=== PATIENT | female | born 1985 | race Caucasian/White ===

== ENCOUNTER 2024-07-11 15:19 | Outpatient (CLI) | payer OTHER, SELFPAY ==
--- NOTE | ~2024-07-11 | US_ITS ---
EXAM: PELVIC ULTRASOUND HISTORY: Abnormal Uterine Bleeding COMPARISON: None. FINDINGS: UTERUS: 8.9 x 4.9 x 6.4 cm. The uterus is anteverted and anteflexed. The endometrial complex measures 8.4 mm. RIGHT OVARY: The right ovary is unremarkable in echogenicity and size measuring 3.7 x 2.0 x 3.5 cm. Dopplerable flow is identified. LEFT OVARY: The left ovary is unremarkable in echogenicity and size measuring 3.7 x 1.9 x 3.0 cm Dopplerable flow is identified. No free fluid is identified within the pelvis. IMPRESSION: Unremarkable sonographic evaluation of the female pelvis, as detailed above. Reviewed, dictated and finalized at location A.
== END 2024-07-11 15:20 | disposition home or self-care (01) ==
PROVIDERS: PCP Obstetrics & Gynecology Gynecology; Visit Provider Obstetrics & Gynecology Gynecology
DX: N93.8 Other specified abnormal uterine and vaginal bleeding (principal)
CPT/HCPCS: 76856

== ENCOUNTER 2024-07-21 08:40 | Outpatient (CLI) | payer OTHER, SELFPAY ==
--- NOTE | ~2024-07-21 | MMUS_ITS ---
EXAMINATION: MM diagnostic min BI w julisa, US breast BI complete HISTORY: Bilateral nipple discharge. Lateral breast pain. TECHNIQUE: Additional 3-D tomosynthesis images of the breasts were performed and synthetic 2-D images were generated. CAD analysis was submitted and interpreted. High resolution bilateral complete breas t ultrasound was performed. COMPARISON: No prior studies for comparison. BREAST PARENCHYMAL COMPOSITION: Dense: The breasts are extremely dense, which lowers the sensitivity of mammography. FINDINGS: MAMMOGRAPHIC FINDINGS: There are no suspicious masses, calcifications or architectural distortion in either breast to sugges t malignancy. ULTRASOUND: Complete US of all 4 quadrants of the breast/s and retroareolar region was reviewed. Right breast: At 3:00, 3 cm from the nipple there is a parallel oriented hypoechoic mass with circums cribed margins, heterogeneous internal echotexture measuring 1.6 x 0.5 x 1.2 cm. No internal vascular ity or posterior features. At 8:00, 4 cm from the nipple there is an 8 mm minimally complicated cyst. Left breast: At 1:00, 3 cm from the nipple there is a 5 mm cyst. At 3:00, 6 cm from the nipple there is an oval circumscribed parallel oriented hypoechoic 7 mm mass without internal vascularity or poste rior features. At 10:00, 4 cm from the nipple there is a 5 mm cyst. IMPRESSION: 1. Probable benign bilateral breast masses in the right breast at 3:00, 3 cm from the nipple and in t he left breast at 3:00, 6 cm from the nipple. 2. Recommend 6 month follow-up limited bilateral breast ultrasound recommended. BI-RADS category 3, probably benign findings. Reviewed, dictated and finalized at location A. IMPRESSION: 1. Probable benign bilateral breast masses in the right breast at 3:00, 3 cm fr om the nipple and in the left breast at 3:00, 6 cm from the nipple. 2. Recommend 6 month follow-up limited bilateral breast ultrasound recommended. BI-RADS category 3, probably benign findings.
== END 2024-07-21 08:41 | disposition home or self-care (01) ==
LOC: MICIMG 08:42
PROVIDERS: PCP Obstetrics & Gynecology Gynecology; Visit Provider Obstetrics & Gynecology Gynecology
DX: N64.52 Nipple discharge (principal)
CPT/HCPCS: 76641; 77062; 77066; G0279

== ENCOUNTER 2024-07-24 01:33 | Day surgery (SDC) | payer OTHER, SELFPAY ==
[2024-07-19 08:28] VITALS: BMI 24.2
--- NOTE | 2024-07-19 08:37 | PC.NURSE ---
Report to the Outpatient Waiting Room, entrance under the green pavilion located off [facility], at time __0915am on date __07/24/24 . Planned Procedure Time: __1115am .? Time changes happen often and if your time is changed the preop area will call you the afternoon before. - You and your visitor will be asked to self-screen and do not enter if you have any COVID symptoms. Please call surgeon if you need to reschedule. - A mask is optional within the hospital at this time. Patients may have clear liquids (water, carbonated beverages, clear teas, apple juice) until 3 hours prior to surgery with a maximum of 20 ounces. - No food from midnight until time of surgery and no smoking, or chewing tobacco (or any form of nicotine). No chewing gum, candy or mints. (08:15am) Take only the following medications with a SIP of water on the morning of surgery: None DO NOT STOP ANY OF YOUR OTHER PRESCRIPTION MEDICATIONS PRIOR TO SURGERY EXCEPT THE FOLLOWING Hold all vitamins and supplements for 3 days per anesthesiologist. Medications to discontinue per physician None Date to take last dose None Please no make-up, nail malay, hairspray, perfume, deodorant, or body powder the day of surgery.? No jewelry (including any body piercings) or valuables the day of surgery, leave them at home.? Please take a shower or bath the night before, or the morning of, surgery with an antibacterial soap.? Wear comfortable, loose fitting clothing.? - Jewelry must be removed prior to entering the operating room.? Rings and piercings that are not removed may be cut off. - The hospital will not accept responsibility for valuables.? - Please leave all valuables, including medications, at home the day of surgery. If you are going home after surgery, a licensed armored car driver must drive you home.? - NO public transportation without another adult if you receive anesthesia. - We recommend that an adult stay with you for 24 hours following discharge. - We also recommend that you do not drive, make important decision, drink alcoholic beverages, or take any drugs that were not prescribed by your health care provider for at least 24 hours after your discharge time. Follow any additional instructions given to you from your surgeon. Telephone instructions given to ___Patient and asked if any additional questions and then verbalized understanding. Patient advised to call surgeon office or pre surgery nurse liaison [phone] if any additional questions.
--- OUTSIDE RECORDS SUMMARY | 2024-07-24 01:36 | XMS_ITS | Data Portability ---
Author Organization [facility] Address [address] [place] [address] Assessment Encounter Date Assessment Date Assessment LastModified by Organization Details LastModified Time 01/06/2016 01/06/2016 discussed irregular periods, will try some OCPs Pelvic US normal for menstruating femal... [email or web address] Not available 01/06/2016 16:33:33 Plan of Treatment Reminders Order Date Submit Date Provider Last Modified By Organization Details Last Modified Time Details Appointments None recorded . Lab pap, IG + reflex HR HPV 2015 016 [email or web address] [id number] [facility], [address] [place] [address], [address], [place], [address], 6 04:31:42 Referral None recorded . Procedures None recorded . Surgeries None recorded . Imaging CT, chest, w/o contrast 2015 016 [email or web address] [id number] Not available 6 04:31:17 US, pelvis, transabd ominal + transvag inal 2015 016 [email or web address] [id number] Not available 6 04:30:28 Medication Orders tramadol 50 mg tablet 2016 017 [facility], [address], [place], [address], 7 17:16:04 ketorola c 60 mg/2 mL intramus cular solution 2016 017 [email or web address] Not available 7 16:16:31 tramadol 50 mg tablet 2015 016 DBA_PATCH_[email or web address] [id number] [facility], [address] , [place], [address], 6 04:30:48 ibuprofe n 800 mg tablet 2015 016 DBA_PATCH_20 [id number] [facility], [address] [facility], [place], [address], 6 04:30:20 Patient TargetsNo targets recorded. Patient Instructions Encounter Date Encounter Id Patient Instructions Last Modified By Organization Details Last Modified Time 12/16/2015 [id number] Make apt. for pelvic US TIP. RTC in 2 weeks. Apt. made. mpass Not available 12/16/2015 17:25:[address] scan in ER. Told to see track laborer for enlarged uterus and bleeding x 2 months. Pt. has a hx of a LEEP with little follow-up. Will return here in 2 weeks for annual and follow-up on pelvi US. mpass Not available 12/16/2015 17:24:30 12/18/2015 [id number] abdominal pain: care instructions [email or web address] Not available 12/18/2015 16:15:30 12/30/2015 [id number] To make apt. with Dr. Saxena for pelvic and vaginal pain. mpass Not available 12/30/2015 09:47:01 Pt. had a pelvic US that was essentially negative. She experienced pain on today's exam that caused her to cry. Speculum insertion, removal and pap caused her pain. Will see Dr. Saxena for this problem. mpass Not available 12/30/2015 09:49:00 07/01/2016 [id number] biceps tendinitis: exercises [email or web address] Not available 07/01/2016 16:16:42 Reason for Referral None Reported. Results Created Date Observation Date Name Description Value Unit Range Abnormal Flag Note LastModifiedBy Organization Detail LastModifiedTime 12/30/19 16 12/31/2015 pap, IG + refle x HR HPV diagnosis: COMMEN T NEGAT CHAPIS FOR INTRA EPITH ELIAL VIJAY Wayne AND NAHEED MG . CELLU VILMA JOHNSTON ES ASSOC IATED WITH INFLA MMATI ON ARE PRESE NT. Not Available [facility] ([facility]) [address] [place], [address], 12/31/2015 16:21:23 12/30/19 16 12/31/2015 pap, IG + refle x HR HPV specimen adequacy: COMMELVER T SATIS FACTO RY FOR EVALU ATION . ENDOC ERVIC AL AND/O R SQUAM OUS METAP LASTI C CELLS (ENDO CERVI HARLYE COMPO NENT) ARE PRESE NT. AREAS OF PARTI ALLY OBSCU RING INFLA MMTOR Y EXUDA TE ARE PRESE NT. Not Available [facility] ([facility]) [address] [place], [address], 12/31/2015 16:21:23 12/30/19 16 12/31/2015 pap, IG + refle x HR HPV clinician provided ICD10: MATI Zaldivar Z01.4 19 Not Available [facility] ([facility]) [address] [place], [address], 12/31/2015 16:21:23 12/30/19 16 12/31/2015 pap, IG + refle x HR HPV performed by: MATI ROSENBAUM CYTOKayley OMER T (ASCP ) Not Available [facility] ([facility]) [address] [place], [address], 12/31/2015 16:21:23 12/30/19 16 12/31/2015 pap, IG + refle x HR HPV . . Not Available [facility] ([facility]) [address] [place], [address], 12/31/2015 16:21:23 12/30/19 16 12/31/2015 pap, IG + refle x HR HPV note: MATI T THE PAP SMEAR IS A SCREE HEATHER TEST ELIANE JORGE TO AID IN THE DETEC TION OF DEEP LIGNA NT AND MALALOK NANKayley CONDI TIONS OF THE UTERI NE CERVI X. IT IS NOT A DIAGN OSTIC PROCE DURE AND SHOUL D NOT BE USED THE SOLE MEANS OF DETEC TING CERVI HARLEY CANCE R. BOTH FALSE -POSI TIVE AND FALSE -NEGA TIVE REPOR TS DO OCCUR . Not Available [facility] ([facility]) [address] [facility], [place], [address], 12/31/2015 16:21:23 12/30/19 16 12/31/2015 pap, IG + refle x HR HPV test methodology: COMMEN T THIS LIQUI D BASED THINP REP(R ) PAP TEST WAS SCREE ANIA WITH THE USE OF AN IMAGE GUIDE D SYSTMatilda M. Not Available [facility] ([facility]) [address] [facility], [place], [address], 12/31/2015 16:21:23 12/30/19 16 12/31/2015 pap, IG + refle x HR HPV . COMMEN T THE HPV DNA REFLE X [place] WERE NOT MET WITH THIS SPECI MEN RESUL T THERE FORE, NO HPV TESTI NG WAS PERFO RMED. Not Available [facility] ([facility]) [address] [facility], [place], [address], 12/31/2015 16:21:23 12/25/19 16 12/25/2015 US, pelvi s, trans abdom inal + trans vagin al No observ ation record ed. [email or web address] [address] [place], [address], 12/30/2015 10:04:54 Result Notes None recorded. Problems Name Problem SNOMED Code Status Onset Date Resolution Date Notes Provider Name and Address Organization Details Recorded Time Abdominal pain 55849610 Active 2015 Anna Ferreira null, [place] - [facility] 6 17:02:16 Dysmenorrhea 752404117 Active 2012 CHERRIE Peck, [place] - [facility] 6 14:48:17 Bipolar disorder 77669154 Active Korin wayne MA null, [place] - [facility] 6 14:49:31 Problem Notes None recorded. Procedures Surgical History Date Name Laterality Status Provider Name and Address Organization Details Recorded Time Date of Last Pap Smear completed Jesus Rodriguez RN [facility] 12/30/2015 09:14:37 2 Caesarean Section completed Korin Bay MA [facility] 12/30/2015 15:07:03 9 Caesarean Section completed Korin Bay MA [facility] 12/30/2015 15:06:07 Tubal Ligation completed Anna Ferreira [facility] 12/16/2015 17:02:59 LEEP completed Anna Ferreira [facility] 2015 17:03:06 Imaging Results None recorded. Procedure Notes None recorded. Medical Equipment None Reported. Allergies No known drug allergies Medications Name Sig Start Date Stop Date Status Note LastModified by Organization Details LastModified Time ibuprofen 800 mg tablet Take 1 tablet 3 times a day by oral route around the clock. 12/29 completed Not Available Not Available Not Available tramadol 50 mg tablet Take 1 tablet every 8 hours by oral route for 30 days. 2016 active Not Available Not Available Not Avai lable ketorolac 60 mg/2 mL intramuscul ar solution Inject 2 mL by intramusc ular route. 2016 active Not Available Not Available Not Avai lable Vitals Date Recorded Body height Body weight Body mass index (BMI) Oxygen saturation Oxygen saturation in Arterial blood by Pulse oximetry Heart rate Systolic blood pressure Diastolic blood pressure Provider Name and Address Organization Details Last Updated DateTime 7 160.02 cm 78737.7 2 g 21.7 kg/m2 98 % 98 % 112 /min 134 mm[Hg] 84 mm[Hg] Kate Yee MA [facility] 7 15:47:24 Date Recorded Body height Body weight Body mass index (BMI) Systolic blood pressure Diastolic blood pressure Provider Name and Address Organization Details Last Updated DateTime 12/16/2015 160.02 cm 58340.64 g 22.3 kg/m2 118 mm[Hg] 64 mm[Hg] Anna Ferreira [facility] 6 17:01:50 Date Recorded Body height Body weight Body mass index (BMI) Oxygen saturation Oxygen saturation in Arterial blood by Pulse oximetry Heart rate Systolic blood pressure Diastolic blood pressure Provider Name and Address Organization Details Last Updated DateTime 160.02 cm 59096.7 2 g 21.7 kg/m2 99 % 99 % 84 /min 120 mm[Hg] 84 mm[Hg] Kate Yee MA [facility] 6 15:16:10 Date Recorded Body height Body weight Body mass index (BMI) Systolic blood pressure Diastolic blood pressure Provider Name and Address Organization Details Last Updated DateTime 12/30/2015 160.02 cm 84205.08 g 21.3 kg/m2 118 mm[Hg] 76 mm[Hg] Jesus Rodriguez RN [facility] 6 09:12:56 Date Recorded Body height Body weight Body mass index (BMI) Systolic blood pressure Diastolic blood pressure Provider Name and Address Organization Details Last Updated DateTime 01/06/2016 160.02 cm 91719.86 g 21.8 kg/m2 102 mm[Hg] 62 mm[Hg] Korin wayne MA [facility] 6 16:07:07 Social History Question Answer Notes LastModified by Organizat ion Details LastModified Time Tobacco Smoking Status Current Every Day Smoker [facility] 12/16/2015 17:02:45 How Much Tobacco Do You Smoke? 0.5 PPD Information not available 12/16/2015 Sex: Unknown Functional Status None recorded. Mental Status None recorded. Family History Relationship Description Onset Age of this Age Resolved Age Notes LastModified by Organization Details LastModified Time Mother Hysterectomy Not avai lable 12/16/2015 17:02:38 Paternal Grandmother Hysterectomy other [place] [email or web address] Not available 12/30/2015 15:05:27 Medical History Condition Response Other N High Blood Pressure N Breast Cancer N Lung Disease N Depression N Blood Clots N Breast Problem N Anesthesia Complications N Headaches/Migraines N Anxiety Disorder N Muscle, Joint, or Bone Problems N Polyps N Infertility N Acid Reflux (GERD) N Cancer N Endometriosis N High Cholesterol N Liver Disease N Kidney or Bladder Problems N Thyroid Problems N GI Problems N Acne N Eating Disorder N Anemia N Ovarian Cancer N Diabetes N Blood Transfusions N Seizures/Epilepsy N Abuse/Domestic Violence N Asthma N Hepatitis N Heart Disease N Pre-Eclampsia N Osteoporosis N Gynecological History Statement/Question Response Abnormal Pap Y Flow Heavy On BCP's at Conception? Y STIs/STDs N Duration of Flow (days) Age at Menarche 11 Current Control Method Tubal Ligat ion Age at First Child 20 Sexually Active? Y Menses Monthly Y Date of Last Pap Smear 12/30/2015 Sexual Problems? Y LMP Approximate Obstetrics History GPAL:G 3 P 3 0 0 3 Type Value Full Term 3 Living 3 Total 3 Past Encounters Encounter ID Performer Location Encounter Start Date Encounter Closed Date Diagnosis/Indication Diagnosis SNOMED-CT Code Diagnosis ICD10 Code Diagnosis Note [id number] Maritza Dias [facility] Nicole Rod ([facility] 122) [address] [facility] [place] [address] 12/16/2015 16:54:27 12/17/2015 08:52:10 Pain in pelvis 42357150 R10.2 [id number] CHRISTOFER Caicedo [address] [place] [address] 12/18/2015 14:40:05 12/18/2015 15:56:13 Solitary nodule of lung 404852371 R91.1 Abdominal pain 39925603 R10.9 [id number] Maritza Dias [facility] Nicole Rod ([facility] 122) [address] [facility] [place] [address] 12/30/2015 09:06:47 12/30/2015 12:34:24 Gynecologic examination 78124234 Z01.419 Pain in pelvis 92914591 R10.2 [id number] MD Nicole Treviño ([facility] 205) [address] [facility] [place] [address] 01/06/2016 15:49:42 01/07/2016 09:37:08 Pain in pelvis 04619255 R10.2 Irregular periods 442517 07 N92.6 [id number] MD Sharath Bailey [facility] [address] [place] [address] 07/01/2016 15:38:05 07/01/2016 17:10:42 Biceps tendinitis 688830376 M75.22 Health Concerns Section Related Observation LastModified by Organization Detai ls LastModified Time None Recorded Concern Status LastModified by Organization Details LastModified Time None Recorded Advance Directives Directive None Recorded Payers Encounter Date Sequence Insurance Name Policy Number Policy Brandon Covered Member ID Brandon Member ID Guarantor Name 12/16/2015 1 [place] [facility] Radha Gale [id number] Radha Pereyra 12/18/2015 1 [place] [facility] Radha Gale [id number] Radha Pereyra 12/30/2015 1 [place] [facility] Radha Gale [id number] Radha Pereyra 01/06/2016 1 [place] [facility] Radha Gale [id number] Radha Pereyra 07/01/2016 1 [place] [facility] Radha Gale [id number] Radha Pereyra Notes Date Note Type Note Provider Name and Address Organization Details Recorded Time 12/16/2015 text/html Pelvic PainReported bypatient.Location :bilateral; suprapubic; lower back Onset/Timin-2 months Duration:persisten t Quality:tender; aching; pressure; light menstrual bleeding; worsening Severity:moderate Context:unrelated to menstrual cycle; non-menstrual bleeding; history of prior biopsies Alleviating Factors:none Aggravating Factors:intercours e; movement Associated Symptoms:no chills; no constipation; no diarrhea; no vaginal discharge; no pain with urination; normal emptying of bladder; no feelings of urgency; no blood in the urine; normal libido; no fever; no nausea; no vomiting; no nocturia; no sexual abuse; no ectopic pregnancies; no endometriosis; no urinary frequency; no vaginal itching or irritation;abdomin al pain;back pain;dyspareunia HEATHER Jeffries Attn: [address]ing[address] [place], [address], [facility] 12/16/2015 17:25:37 12/18/2015 text/html has a spot on justine zheng from CT at [facility]. Anthony Beltran PA-C Attn: [address]ing[address] [place], [address], [facility] 12/18/2015 15:54:35 12/30/2015 text/html Annual GYNReport ed bypatient.Menstrua l cycle:Normal menses Urinary symptoms:No hematuria; No incontinence Vulva:No genital lesion Vagina:Normal vaginal discharge Breast:No breast pain; No breast lump; No nipple discharge Sexual complaints:No sexual complaints; No pain during intercourse; Normal libido Menopausal Symptoms:No menopausal symptoms; Normal vaginal lubrication Psychological symptoms:No depression; No anxiety; No PMDD Preventive measures:Encourage self breast examination; Encourage regular exercise; Encourage no tobacco use; Encourage regular mammograms starting age 40 HEATHER Jeffries Attn: Accounting[address] [place], [address], [facility] 12/30/2015 09:57:09 07/01/2016 text/html left shoulder pa in radiating into left arm. ER has worked up for cardiac. has not followed up on lung CT. 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 Anthony Beltran PA-C Attn: [address]ing[address] [place], [address], [facility] [employer] 07/01/2016 16:11:09 OBGyn Episode Ob Episode Information Episode Created Date Number of Fetuses Patient Bloodtype Patient rh Status Prepregnancy Weight lbs Domestic Partner Domestic Partner Phone Father Name Billing Checker Status 12/30/19 16 1 CLOSED Fetus Data First Name Last Name Admitted to NICU Weight (g) Sex Living Outcome Pediatric Complications Fetus ID Race Codes Race Delivery Type 3373.36 3704 F Full Term [id number] Narciso Calculation Initial Narciso Date Initial Exam Date Initial Exam Provider Initial Ultrasound Date Last Menstrual Period Date Ultra Sound Weeks Gestation 0 Eighteen To Twenty Week Narciso Update Ultra Sound Date Fundal Height At Umbil Quickening Date Ultra Sound Latest Weeks Gestation Final Narciso Confirmed By Final Narciso Confirmed Date Final Narciso Date Ultra Sound Latest Days Gestation 0 0 Menstrual History Last Menstrual Date Menses Monthly On Bcp Conception Prior Menses Frequency Hcg Plus Date Menarche Onset Age Delivery Information Delivery Date Delivery Type Labor Anesthesia Weeks Gestation Incision Type Labor Labor Length Hrs Delivered By Post Complications Tubal Sterilization Discharge Date Comments 2 Regional-Ep idural 39 false del. by Romeo Discharge Information Feeding Method Contraceptive Method Maternal HG B and HCT Levels Ob Episode Information Episode Created Date Number of Fetuses Patient Bloodtype Patient rh Status Prepregnancy Weight lbs Domestic Partner Domestic Partner Phone Father Name Billing Checker Status 12/30/19 16 1 CLOSED Fetus Data First Name Last Name Admitted to NICU Weight (g) Sex Living Outcome Pediatric Complications Fetus ID Race Codes Race Delivery Type 3912.23 1 M Full Term [id number] Narciso Calculation Initial Narciso Date Initial Exam Date Initial Exam Provider Initial Ultrasound Date Last Menstrual Period Date Ultra Sound Weeks Gestation 0 Eighteen To Twenty Week Narciso Update Ultra Sound Date Fundal Height At Umbil Quickening Date Ultra Sound Latest Weeks Gestation Final Narciso Confirmed By Final Narciso Confirmed Date Final Narciso Date Ultra Sound Latest Days Gestation 0 0 Menstrual History Last Menstrual Date Menses Monthly On Bcp Conception Prior Menses Frequency Hcg Plus Date Menarche Onset Age Delivery Information Delivery Date Delivery Type Labor Anesthesia Weeks Gestation Incision Type Labor Labor Length Hrs Delivered By Post Complications Tubal Sterilization Discharge Date Comments 9 Regional-Ep idural 39 false del. by rn licensed practical Discharge Information Feeding Method Contraceptive Method Maternal HG B and HCT Levels Ob Episode Information Episode Created Date Number of Fetuses Patient Bloodtype Patient rh Status Prepregnancy Weight lbs Domestic Partner Domestic Partner Phone Father Name Billing Checker Status 12/30/19 16 1 CLOSED Fetus Data First Name Last Name Admitted to NICU Weight (g) Sex Living Outcome Pediatric Complications Fetus ID Race Codes Race Delivery Type 3600.15 9704 M Full Term [id number] Vaginal Narciso Calculation Initial Narciso Date Initial Exam Date Initial Exam Provider Initial Ultrasound Date Last Menstrual Period Date Ultra Sound Weeks Gestation 0 Eighteen To Twenty Week Narciso Update Ultra Sound Date Fundal Height At Umbil Quickening Date Ultra Sound Latest Weeks Gestation Final Narciso Confirmed By Final Narciso Confirmed Date Final Narciso Date Ultra Sound Latest Days Gestation 0 0 Menstrual History Last Menstrual Date Menses Monthly On Bcp Conception Prior Menses Frequency Hcg Plus Date Menarche Onset Age Delivery Information Delivery Date Delivery Type Labor Anesthesia Weeks Gestation Incision Type Labor Labor Length Hrs Delivered By Post Complications Tubal Sterilization Discharge Date Comments 6 Regional-Ep idural 42 false del. by [place] Discharge Information Feeding Method Contraceptive Method Maternal HG B and HCT Levels
--- OUTSIDE RECORDS SUMMARY | 2024-07-24 01:36 | XMS_ITS | Clinical Summary ---
Author Organization [facility] Address [address] [place] [phone] Phone Care Team Providers [employer] Sales Representative Name Role Phone Provider, None Primary Care Provider Unavailabl e Allergies No known active allergies Medications methylPREDNISol one (MEDROL) 4 MG Tablet Therapy PackIndications :Cough Use as per instructions on package. 21 Tab 9 Active Active Problems No known active problems Family History Medical History Relation Name Comments High Cholesterol Father Hypertension Father Relation Name Status Comments Father Alive Mother Alive Social History Tobacco Use Types Packs/Day Years Used Date Smoking Tobacco: Every Day Cigarettes Smokeless Tobacco: Never Alcohol Use Standard Drinks/Week Comments Yes 0 (1 standard drink = 0.6 oz pur e alcohol) Comments No Sex and Gender Information Value Date Recorded Sex Assigned at Not on file Legal Sex Female 3:07 PM CDT Gender Identity Not on file Sexual Orientation Not on file Last Filed Vital Signs Vital Sign Reading Time Taken Comments Blood Pressure 102/70 09/07/2018 3:27 PM CDT Pulse - - Temperature 37.3 C (99.2 F) 09/07/2018 3:27 PM CDT Respiratory Rate 18 09/07/2018 3:27 PM CDT Oxygen Saturation - - Inhaled Oxygen Concentration - - Weight 54.4 kg (120 lb) 09/07/2018 3:27 PM CDT Height 160 cm (5' 3) 09/07/2018 3:27 PM CDT Body Mass Index 21.26 09/07/2018 3:27 PM CDT Plan of Treatment Health Maintenance Due Date Last Done Comments Hepatitis C Virus (HCV) Screening 1985 TdaP Immunization 1986 Hepatitis B Immunization (1 of 3 - 19+ 3-dose series) 2005 Pap Smear 07/09/2007 Cervical Cancer Screening (CCS) 2016 HPV/Cotest 2016 Influenza Immunization (#1) 2023 SARS-COV-2 Immunization (2023- season) 2023 Respiratory Syncytial Virus (RSV) Immunization (Adult) (1 - 1-dose 75+ series) 2061 Meningococcal Immunization (ACWY) Aged Out No longer eligible based on patient's age to complete this topic Pneumococcal Immunization Combined Aged Out No longer eligible based on patient's age to complete this topic Rotavirus Immunization Aged Out No lo nger eligible based on patient's age to complete this topic Care Teams [employer] Sales Representative Relationship Specialty Start Date End Date Provider, None [place] PCP - General 09/07/18
--- NOTE | 2024-07-24 09:01 | P.HP_ITS ---
History of Present Illness History of Present Illness Consent: Risks, benefits, and alternatives have been discussed and questions answered. Patient agrees to proceed with procedure. Chief complaint: Menorrhagia Narrative: Radha Pereyra is a 39 year old female with menorrhagia presents for D&C hysteroscopy. Risks of infection, bleeding, perforation, and possible pathology are reviewed. Patient voices understanding and agrees to proceed. Review of Systems Review of Systems: not repeated day of surgery; patient states no changes in status [facility], [facility] Surgical History Surgical History (Updated 07/24/24 @ 09:06 by Gladys Velazco MD) History of hand surgery Secondary to fracture History of History of loop electrical excision procedure (LEEP) Social History Social History Smoking packs per day: 0.5 Smoking cigarettes per day: 10.0 Years smoked: 23 Smoking pack-years: 11.50 Smoking status: Current every day smoker Tobacco type: cigarettes Alcohol intake: current Alcohol use details: 1 per month Substance use: never Living arrangements: with family Spiritual care concerns: No Meds Home Medications and Allergies Home Medications ?Medication ?Instructions ?Recorded ?Confirmed ?Type No Home Medications 07/19/24 07/19/24 History Allergies Allergy/AdvReac Type Severity Reaction Status Date / Time No Known Allergies Allergy Verified 07/19/24 08:27 Exam Const: General: healthy appearing and alert Orientation/consciousness: patient oriented x3 Resp: Effort & Inspection: normal respiratory effort : External Female Exam: normal external appearance Speculum Exam - Vagina: normal appearance of the vagina and normal vaginal discharge Speculum Exam - Cervix: normal appearance of the cervix Bimanual exam- vagina & uterus: uterine size normal and consistency normal Bimanual Exam- Adnexa, other: normal adnexae and No adnexal tenderness Neuro: General: patient oriented x3 Assessment and Plan Assessment and plan (1) Menorrhagia: Code(s): N92.0 - Excessive and frequent menstruation with regular cycle Status: Acute Assessment and Plan: Plan to proceed with D&C hysteroscopy
--- NOTE | 2024-07-24 09:01 | WPDHPUPDATE1 ---
History and Physical Update Update Date/Time: 07/24/24 09:01 History and Physical has been reviewed, including an updated exam of the patient. There are NO changes in the patient's condition. Risks, benefits, and alternatives have been discussed and questions answered. Patient agrees to proceed with procedure.
[2024-07-24 09:02] VITALS: BP 118/63; PULSE 78; RESP 16; TEMP 36.6; O2SAT 100
[2024-07-24] MEDS: ACETAMINOPHEN 500 MG TABLET 1000 MG PO (09:30)
[2024-07-24] MEDS: LACTATED RINGERS 1,000 ML 30 ML IV CONT (09:30)
--- NOTE | 2024-07-24 09:32 | WPDANESEPPF ---
Anes - Initial Pre Proc Eval Procedure: Operation Date: 07/24/24 11:15 Proposed Procedures p Hysteroscopy Dilation and Curettage - Gladys Velazco MD Date/Time: 07/24/24 09:32 Surgeon: Gladys Velazco MD Pre Op Diagnosis: Menorrhagia Patient Data Age: 39 Gender: F Height: 1.6 m Weight: 62 kg Allergies Allergy/AdvReac Type Severity Reaction Status Date / Time No Known Allergies Allergy Verified 07/19/24 08:27 Home Medications ?Medication ?Instructions ?Recorded ?Confirmed ?Type No Home Medications 07/19/24 07/19/24 History Patient hx anesthesia problems: none Family hx anesthesia problems: none Results Review: All pre-operative results and documents have been reviewed as part of the pre-operative evaluation. [facility] Surgical History Surgical History History of hand surgery Secondary to fracture History of History of loop electrical excision procedure (LEEP) Social History Social History Smoking packs per day: 0.5 Smoking cigarettes per day: 10.0 Years smoked: 23 Smoking pack-years: 11.50 Smoking status: Current every day smoker Tobacco type: cigarettes Alcohol intake: current Alcohol use details: 1 per month Substance use: never Living arrangements: with family Spiritual care concerns: No Anes - Eval Final PreProcedure Day of Procedure 07/24/24 09:32 Patient weight: normal Heart: regular rate and rhythm Lungs: clear to auscultation Airway: Mallampati scale class II Neurological: alert and oriented Last oral intake: >/= 8 hours ASA classification: II Emergent: no Anesthetic plan: proceed Anesthesia type and monitoring: general GIVS and standard monitoring Results Review: All pre-operative results and documents have been reviewed as part of the pre-operative evaluation. Informed Consent: The patient's anesthetic plan and its attendant risks and benefits were discussed with the patient/family/POA. Questions were solicited and answers provided to the satisfaction of the patient/family/POA.
--- NOTE | 2024-07-24 09:58 | S_PTH ---
PATIENT: Radha Pereyra LOC: [facility] U#:[id number] AGE/SX: 39/F ROOM: RE07/24/[address]: Gladys Velazco MD : 1985 BED: DIS: 07/24/2024 SPEC #: [id number] RECD: 07/24/24 13:08 STATUS: JAY REPriyanka #: [id number] SANG: 07/24/24 09:[address]: Gladys Velazco DEPT: [facility] Surgical RECD BY: Lesly Uribe ENTERED: 07/24/24 13:08 SP TYPE: Surgical OTHR DR: UNKNOWN,DOCTOR Tissues: A - Endometrial Curettings Procedures: Hematoxylin and Eosin Stain Gross and Microscopic Level 4
[2024-07-24 10:05] VITALS: BP 108/65; PULSE 71; RESP 12; O2SAT 99
--- NOTE | 2024-07-24 10:05 | W.PM.PROC2 ---
Procedure Note - Detailed Date of Procedure 07/24/24 Pre-op Diagnosis Menorrhagia Post-op Diagnosis Same Procedure Performed D&C hysteroscopy Surgeon Gladys Velazco MD Anesthesia MAC Findings Uterus sounds to 12cm and appears grossly normal. Description of Procedure The patient is taken to operating room and placed under anesthesia in the dorsal lithotomy position. The patient was prepped and draped usual sterile fashion. Hodges speculum was placed in the vagina and the cervix grasped on the anterior lip with a tenaculum. Uterus is sounded to 12cm. The diagnostic hysteroscope was placed and with no abnormalities noted it is removed. The sharp curette was used to curette the endometrium until a good uterine cry was noted in all areas. Instruments are removed. Sponge, needle, and instrument counts are correct per the OR staff. The patient was taken to recovery in stable condition. Estimated Blood Loss 5 Drains No Pathology Yes (Endometrial curettings) Complications No immediate complications Condition Stable Disposition PACU
[2024-07-24 10:11] LABS: BEDSIDEPREGUCG Negative (Negative)
[2024-07-24 10:35] VITALS: BP 105/65; PULSE 63; O2SAT 97
[2024-07-24 11:00] VITALS: BP 100/66; PULSE 61; RESP 18; O2SAT 99
[2024-07-24 11:30] VITALS: BP 94/65; PULSE 61; RESP 18
[2024-07-24 11:40] VITALS: BP 102/67; PULSE 62; RESP 16
== END 2024-07-24 11:48 | disposition home or self-care (01) ==
PROVIDERS: Visit Provider Obstetrics & Gynecology Gynecology
PROC: 0U5B8ZZ Destruction of Endometrium, Via Natural or Artificial Opening Endoscopic (ICD-10-PCS; CPT 58563; principal; 2024-07-24 11:15)
DX: N92.0 Excessive and frequent menstruation with regular cycle (principal); F17.210 Nicotine dependence, cigarettes, uncomplicated
CPT/HCPCS: 58558; 88305; A9270; J2250; J2405; J2704; J3010; J7120